=== PATIENT | female | born 1995 | race Caucasian/White ===

== ENCOUNTER 2022-02-08 05:24 | Inpatient (IN) | payer OTHER, MEDICAID ==
[~2022-02-08 05:24] MED LIST: Acetaminophen/oxyCODONE 325-5 MG Tab PO PRN; Albuterol 0.083% 2.5 MG/3 ML Neb Soln NEB PRN; HYDROmorphone 1 MG/ML Syringe IVPUSH PRN; Metoclopramide 10 MG/2 ML SDV IVPUSH PRN; Morphine 4 MG/ML VIAL IVPUSH PRN; Naloxone 0.4 MG/ML SDV IVPUSH PRN; Ondansetron 4 MG/2 ML SDV IVPUSH PRN; Phenylephrine HCl In 0.9% NaCl 1 MG/10 ML Vial IVPUSH SCH; diphenhydrAMINE 50 MG/ML SDV IVPUSH PRN; ePHEDrine 50 MG/ML SDV IVPUSH PRN; fentaNYL 100 MCG/2 ML SDV IVPUSH PRN; fentaNYL 50 MCG/ML SDV IVPUSH PRN
[2022-02-08] MEDS ORDERED: Sodium Chloride 0.9% 20 ML SDV IV PRN (05:29)
[2022-02-08] MEDS ORDERED: Sodium Chloride 0.9% 10 ML Syringe FLUSH PRN (05:29)
[2022-02-08] MEDS ORDERED: Sodium Chloride 0.9% 2.5 ML Syringe FLUSH PRN (05:29)
[2022-02-08] MEDS ORDERED: Oxytocin/0.9 % Sodium Chloride 30 UNIT/500 ML BAG IV SCH ×2 (05:30→10:00)
[2022-02-08] MEDS: Lactated Ringers 1,000 ML IV SCH ×2 (06:12→07:47)
[2022-02-08] MEDS ORDERED: ceFAZolin 2 GM in Premix Bag 1 BAG IV ONE (06:58)
[2022-02-08] MEDS ORDERED: fentaNYL 100 MCG/2 ML SDV ONE (07:30)
[2022-02-08] MEDS ORDERED: ceFAZolin 1 GM Vial ONE (07:30)
[2022-02-08] MEDS ORDERED: Lidocaine 2% 5 ML SDV ONE (07:30)
[2022-02-08] MEDS ORDERED: Morphine PF 10 MG/10 ML SDV ONE (07:31)
[2022-02-08] MEDS ORDERED: Bisacodyl 10 MG Supp RECTAL PRN ×2 (07:55→09:58)
[2022-02-08] MEDS ORDERED: Ondansetron 4 MG/2 ML SDV IVPUSH PRN ×2 (07:55→09:58)
[2022-02-08] MEDS ORDERED: Acetaminophen/oxyCODONE 325-5 MG Tab PO PRN ×3 (07:55→09:58)
[2022-02-08] MEDS ORDERED: Tranexamic Acid 1,000 MG in Sodium Chloride 0.9% 100 ML IV PRN ×2 (07:55→09:58)
[2022-02-08] MEDS ORDERED: diphenhydrAMINE 50 MG/ML SDV IVPUSH PRN ×2 (07:55→09:58)
[2022-02-08] MEDS ORDERED: Misoprostol 200 MCG Tab RECTAL PRN ×2 (07:55→09:58)
[2022-02-08] MEDS ORDERED: Lanolin 100% Cream 7 GM Tube TOP PRN ×2 (07:55→09:58)
[2022-02-08] MEDS ORDERED: Oxytocin 10 Units/1 ML SDV IM PRN ×2 (07:55→09:58)
[2022-02-08] MEDS ORDERED: Methylergonovine 0.2 MG/1 ML Amp IM PRN ×2 (07:55→09:58)
[2022-02-08] MEDS ORDERED: Ketorolac 30 MG/ML SDV IVPUSH SCH ×2 (08:00→10:00)
[2022-02-08] MEDS ORDERED: Lactated Ringers 1,000 ML IV SCH ×2 (08:00→10:00)
[2022-02-08] MEDS ORDERED: Midazolam 1 MG/ML 2 ML SDV ONE (08:08)
[2022-02-08] MEDS ORDERED: Ibuprofen 800 MG Tab PO PRN (09:58)
[2022-02-08] MEDS: Ketorolac 30 MG/ML SDV IVPUSH SCH ×3 (10:27→22:15)
[2022-02-08] MEDS: Docusate Sodium 100 MG Cap PO SCH ×2 (13:13→21:11)
[2022-02-08] MEDS ORDERED: Docusate Sodium 100 MG Cap PO SCH (21:00)
[2022-02-09] MEDS: Ketorolac 30 MG/ML SDV IVPUSH SCH ×2 (04:00→09:33)
[2022-02-09] MEDS: Docusate Sodium 100 MG Cap PO SCH ×2 (09:33→20:53)
[2022-02-09] MEDS: Acetaminophen/oxyCODONE 325-5 MG Tab PO PRN ×2 (13:19→20:50)
[2022-02-10] MEDS: Ibuprofen 800 MG Tab PO PRN ×2 (04:30→14:19)
[2022-02-10] MEDS: Acetaminophen/oxyCODONE 325-5 MG Tab PO PRN (07:33)
[2022-02-10] MEDS: Docusate Sodium 100 MG Cap PO SCH ×2 (07:33→18:00)
== END 2022-02-10 18:50 | disposition home or self-care (01) | DRG 788 ==
LOC: MW.OB 05:24
PROVIDERS: ADMIT Obstetrics & Gynecology; ATTEND Obstetrics & Gynecology Obstetrics
PROC: 10D00Z1 Extraction of Products of Conception, Low, Open Approach (ICD-10-PCS; principal; 2022-02-08)
DX: O34.211 Maternal care for low transverse scar from previous cesarean delivery (principal); Z37.0 Single live birth; O99.214 Obesity complicating childbirth; Z3A.39 39 weeks gestation of pregnancy
CPT/HCPCS: 01961; 36415; 59025; 85014; 85018; 85027; 86592; 86850; 86900; 86901; A9270-GY; J0131; J0690; J1790; J1885; J2250; J2274; J3010; J7120

== ENCOUNTER 2023-04-11 14:56 | Emergency (ER) | payer SELFPAY ==
[2023-04-11] MEDS ORDERED: Sodium Chloride 0.9% 2.5 ML Syringe FLUSH PRN (15:04)
[2023-04-11] MEDS ORDERED: Sodium Chloride 0.9% 10 ML Syringe FLUSH PRN (15:04)
[2023-04-11] MEDS ORDERED: Sodium Chloride 0.9% 1,000 ML IV STA (15:07)
[2023-04-11 15:37] LABS: BASOPHILS ABSOLUTE AUTO 0.03 K/uL (0.00-0.20); BASOPHILS PERCENT AUTO 0.2 % (0.0-1.0); EOSINOPHILS ABSOLUTE AUTO 0.04 K/uL (0.00-0.45); EOSINOPHILS PERCENT AUTO 0.3 % (0.0-6.0); HEMATOCRIT 39.4 % (37.0-47.0); HEMOGLOBIN 13.2 g/dL (12.0-16.0); LYMPHOCYTES ABSOLUTE AUTO 1.86 K/uL (1.00-4.80); LYMPHOCYTES PERCENT AUTO 12.7 % (24.0-44.0); MEAN CORPUSCULAR HEMOGLOBIN 27.2 pg (28.0-32.0); MEAN CORPUSCULAR HGB CONC 33.5 g/dL (32.0-36.0); MEAN CORPUSCULAR VOLUME 81.1 fL (83.0-99.0); MEAN PLATELET VOLUME 8.5 fL (9.4-12.3); MONOCYTES ABSOLUTE AUTO 0.74 K/uL (0.00-0.80); NEUTROPHILS PERCENT AUTO 81.5 % (41.0-71.0); PLATELET COUNT,PLT 287 K/uL (150-400); RED BLOOD CELL COUNT 4.86 M/uL (4.10-5.30); WHITE BLOOD CELL COUNT,WBC 14.68 K/uL (3.9-11.3)
[2023-04-11 16:04] LABS: A/G RATIO 0.8 (0.9-1.6); ALBUMIN 3.4 g/dL (3.4-5.0); BILIRUBIN TOTAL 0.4 mg/dL (0.2-1.0); CALCIUM 8.6 mg/dL (8.5-10.1); CARBON DIOXIDE,CO2 24.5 mmol/L (21.0-32.0); CREATININE 0.6 mg/dL (0.6-1.0); EST CRCL DRUG DOSING (CG) 120.54 mL/min; POTASSIUM,K 3.4 mmol/L (3.5-5.1); PROTEIN TOTAL,TP 7.7 g/dL (6.4-8.2)
[2023-04-11] MEDS ORDERED: LORazepam 2 MG/ML SDV IVPUSH STA (16:58)
== END 2023-04-11 19:09 | disposition home or self-care (01) ==
LOC: MW.ED 14:56
DX: O03.9 Complete or unspecified spontaneous abortion without complication (principal); E66.9 Obesity, unspecified; Z68.32 Body mass index [BMI] 32.0-32.9, adult
CPT/HCPCS: 36415; 76817; 80053; 83690; 84702; 85025; 86850; 86900; 86901; 96374; 99284; J2060; J3490; J7030

== ENCOUNTER 2024-01-10 05:05 | Inpatient (IN) | payer SELFPAY ==
[2024-01-10] MEDS ORDERED: Sodium Chloride 0.9% 2.5 ML Syringe FLUSH PRN (05:38)
[2024-01-10] MEDS ORDERED: Sodium Chloride 0.9% 10 ML Syringe FLUSH PRN (05:38)
[2024-01-10] MEDS ORDERED: Sodium Chloride 0.9% 20 ML SDV IV PRN (05:38)
[2024-01-10] MEDS ORDERED: Oxytocin/0.9 % Sodium Chloride 30 UNIT/500 ML BAG IV SCH ×2 (05:45→12:15)
[2024-01-10] MEDS: Lactated Ringers 1,000 ML IV SCH (05:54)
[2024-01-10 06:17] LABS: HEMATOCRIT 33.6 % (37.0-47.0); HEMOGLOBIN 10.7 g/dL (12.0-16.0); MEAN CORPUSCULAR HEMOGLOBIN 24.3 pg (28.0-32.0); MEAN CORPUSCULAR HGB CONC 31.8 g/dL (32.0-36.0); MEAN CORPUSCULAR VOLUME 76.2 fL (83.0-99.0); MEAN PLATELET VOLUME 9.3 fL (9.4-12.3); PLATELET COUNT,PLT 280 K/uL (150-400); RED BLOOD CELL COUNT 4.41 M/uL (4.10-5.30); WHITE BLOOD CELL COUNT,WBC 8.05 K/uL (3.9-11.3)
[2024-01-10] MEDS ORDERED: Oxytocin 10 Units/1 ML SDV ONE (06:45)
[2024-01-10] MEDS ORDERED: Tranexamic Acid 1,000 MG/10 ML Vial ONE (06:45)
[2024-01-10] MEDS ORDERED: Ondansetron 4 MG/2 ML SDV ONE (06:45)
[2024-01-10] MEDS ORDERED: ceFAZolin 2 GM Vial ONE (06:45)
[2024-01-10] MEDS ORDERED: dexmedeTOMIDine HCl 200 MCG/2 ML SDV ONE (06:45)
[2024-01-10] MEDS ORDERED: Ropivacaine 0.5% 5 MG/ML 30 ML SDV ONE (06:45)
[2024-01-10] MEDS ORDERED: Dexamethasone 4 MG/ML 5 ML MDV ONE (06:45)
[2024-01-10] MEDS ORDERED: fentaNYL 100 MCG/2 ML SDV ONE (06:45)
[2024-01-10] MEDS ORDERED: Phenylephrine 1% 10 MG/ML SDV ONE (06:45)
[2024-01-10] MEDS ORDERED: ePHEDrine 50 MG/ML SDV ONE (06:45)
[2024-01-10] MEDS ORDERED: Water For Injection, Sterile 20 ML ONE (06:46)
[2024-01-10] MEDS ORDERED: Morphine PF 10 MG/10 ML SDV ONE (06:46)
[2024-01-10] MEDS ORDERED: Metoclopramide 10 MG/2 ML SDV ONE (07:05)
[2024-01-10] MEDS ORDERED: Morphine 2 MG/ML SYRINGE IVPUSH PRN (07:19)
[2024-01-10] MEDS ORDERED: Albuterol 0.083% 2.5 MG/3 ML Neb Soln NEB PRN (07:19)
[2024-01-10] MEDS ORDERED: Metoclopramide 10 MG/2 ML SDV IVPUSH PRN (07:19)
[2024-01-10] MEDS ORDERED: fentaNYL 100 MCG/2 ML SDV IVPUSH PRN (07:19)
[2024-01-10] MEDS ORDERED: Nalbuphine 10 MG/1 ML Vial IVPUSH PRN (07:19)
[2024-01-10] MEDS ORDERED: Ondansetron 4 MG/2 ML SDV IVPUSH PRN ×3 (07:19→12:05)
[2024-01-10] MEDS ORDERED: Acetaminophen/oxyCODONE 325-5 MG Tab PO PRN (07:19)
[2024-01-10] MEDS ORDERED: droPERidol 5 MG/2 ML SDV IVPUSH PRN (07:19)
[2024-01-10] MEDS ORDERED: fentaNYL 50 MCG/ML SDV IVPUSH PRN (07:19)
[2024-01-10] MEDS ORDERED: ePHEDrine 50 MG/ML SDV IVPUSH PRN (07:19)
[2024-01-10] MEDS ORDERED: HYDROmorphone 1 MG/ML Syringe IVPUSH PRN (07:19)
[2024-01-10] MEDS ORDERED: Naloxone 0.4 MG/ML SDV IVPUSH PRN (07:19)
[2024-01-10] MEDS: ceFAZolin 2 GM in Sodium Chloride 0.9% 50 ML IV ONE (09:03)
[2024-01-10] MEDS: Citric Acid/Sodium Citrate Solution 30 ML Cup PO ONE (09:04)
[2024-01-10] MEDS: diphenhydrAMINE 50 MG/ML SDV IVPUSH PRN (09:22)
[2024-01-10] MEDS: Acetaminophen 1,000 MG in Premix Bag 1 BAG IV SCH (10:15)
[2024-01-10] MEDS ORDERED: Lanolin 100% Cream 7 GM Tube TOP PRN (12:05)
[2024-01-10] MEDS ORDERED: diphenhydrAMINE 50 MG/ML SDV IVPUSH PRN (12:05)
[2024-01-10] MEDS ORDERED: Oxytocin 10 Units/1 ML SDV IM PRN (12:05)
[2024-01-10] MEDS ORDERED: Misoprostol 200 MCG Tab RECTAL PRN (12:05)
[2024-01-10] MEDS ORDERED: Methylergonovine 0.2 MG/1 ML Amp IM PRN (12:05)
[2024-01-10] MEDS ORDERED: Lactated Ringers 1,000 ML IV SCH (12:15)
[2024-01-10] MEDS: Ketorolac 30 MG/ML SDV IVPUSH SCH (12:42)
[2024-01-10] MEDS: Docusate Sodium 100 MG Cap PO SCH (22:07)
[2024-01-11 06:01] LABS: HEMATOCRIT 26.8 % (37.0-47.0); HEMOGLOBIN 8.3 g/dL (12.0-16.0)
[2024-01-11] MEDS: Acetaminophen/oxyCODONE 325-5 MG Tab PO PRN (16:23)
[2024-01-11] MEDS: Ibuprofen 800 MG Tab PO PRN (18:20)
[2024-01-11] MEDS: Bisacodyl 10 MG Supp RECTAL PRN (20:08)
[2024-01-12] MEDS: Acetaminophen/oxyCODONE 325-5 MG Tab PO PRN (04:40)
== END 2024-01-13 13:00 | disposition home or self-care (01) | DRG 788 ==
LOC: MW.OB 05:05 → OBSVTOIN 05:38 → MW.OB 12:02
PROVIDERS: ADMIT Obstetrics & Gynecology Obstetrics; ATTEND Obstetrics & Gynecology Obstetrics
PROC: 10D00Z1 Extraction of Products of Conception, Low, Open Approach (ICD-10-PCS; principal; 2024-01-10 08:00)
DX: O34.211 Maternal care for low transverse scar from previous cesarean delivery (principal); Z37.0 Single live birth; Z3A.39 39 weeks gestation of pregnancy; O99.214 Obesity complicating childbirth; O99.334 Smoking (tobacco) complicating childbirth; F17.210 Nicotine dependence, cigarettes, uncomplicated
CPT/HCPCS: 36415; 51701; 51798; 59025; 85014; 85018; 85027; 86592; 86850; 86900; 86901; A9270-GY; J0131; J0690; J1100; J1200; J1885; J2274; J2371; J2405; J2590; J2765; J2795; J3010; J3490; J7120